=== PATIENT | female | born 1970 | race Caucasian/White ===

== ENCOUNTER → 2020-07-11 15:31 | Outpatient (CLI) | payer OTHER, SELFPAY ==
--- NOTE | ~2020-07-11 | MM_ITS ---
EXAMINATION: MM screening bonnie BI w aravind HISTORY: Screening mammogram TECHNIQUE: Craniocaudal and mediolateral oblique 3-D tomosynthesis images were obtained and synthetic 2-D images were generated. CAD analysis was submitted and interpreted. COMPARISON: 11/01/2015 bilateral diagnostic digital mammogram 10/21/2015 bilateral digital screening mammogram BREAST PARENCHYMAL COMPOSITION: There are scattered areas of fibroglandular density. FINDINGS: Stable mild fibroglandular asymmetry. There is no evidence of suspicious mass, calcificatio n, or architectural distortion to suggest malignancy in either breast. There has been no suspicious i nterval change. IMPRESSION: 1. No mammographic evidence of malignancy. 2. Recommend routine screening mammography in one year. BI-RADS Category 2: Benign finding(s). Reviewed, dictated and finalized at location A.
== END ==
PROVIDERS: PCP Family Medicine; Visit Provider Family Medicine
DX: Z12.31 Encounter for screening mammogram for malignant neoplasm of breast (principal)
CPT/HCPCS: 77063; 77067

== ENCOUNTER → 2020-08-01 01:08 | Outpatient (CLI) | payer OTHER, SELFPAY ==
[2020-08-01 18:48] LABS: SARS-CoV-2 RNA PCR Negative
== END ==
PROVIDERS: PCP Family Medicine; Visit Provider Surgery
DX: Z01.812 Encounter for preprocedural laboratory examination (principal); Z20.822 Contact with and (suspected) exposure to COVID-19
CPT/HCPCS: C9803; U0003; U0005

== ENCOUNTER 2020-08-04 01:16 | Day surgery (SDC) | payer OTHER, SELFPAY ==
[2020-07-26 13:08] VITALS: BMI 45.2
[2020-08-04] MEDS: LACTATED RINGERS 1,000 ML 150 ML IV CONT (07:22)
[2020-08-04 07:28] VITALS: BP 144/104; PULSE 109; RESP 18; TEMP 37.2; O2SAT 97; BMI 45.8
--- NOTE | 2020-08-04 08:32 | P.PNAN_ITS ---
Anes - Initial Pre Proc Eval Procedure: Operation Date: 08/04/20 08:30 Proposed Procedures p Screening Colonoscopy - Donovan Ibrahim DO Date/Time: 08/04/20 08:32 Surgeon: Donovan Ibrahim DO Pre Op Diagnosis: neoplasm screening Patient Data Age: 50 Gender: F Height: 5 ft 6 in Weight: 128.8 kg Last Vital Signs Temp 98.9 F 08/04/20 07:28 Pulse 109 H 08/04/20 07:28 Resp 18 08/04/20 07:28 BP 144/104 H 08/04/20 07:28 Pulse Ox 97 08/04/20 07:28 Allergies Allergy/AdvReac Type Severity Reaction Status Date / Time No Known Allergies Allergy Verified 08/04/20 07:27 Home Medications Medication Instructions Recorded Confirmed Type chlorthalidone 25 mg PO DAILY 07/26/20 08/04/20 History ergocalciferol (vitamin D2) 50,000 unit PO USEASDIRECTD 07/26/20 08/04/20 History Patient hx anesthesia problems: none Family hx anesthesia problems: none COUNT INCLUDES THE [facility] Past Medical History Medical History (Updated 08/04/20 @ 08:22 by Raza Howard MD) Arthritis Hypertension Morbid obesity Social History Social History Smoking status: Never smoker Alcohol intake: current Drinks per week: 2 Substance use: never Substance use type: does not use Living arrangements: with family Spiritual care concerns: No Anes - Eval Final PreProcedure Day of Procedure 08/04/20 08:32 Patient weight: morbidly obese Heart: regular rate and rhythm Lungs: clear to auscultation Airway: Mallampati scale class III Neurological: alert and oriented Last oral intake: >/= 8 hours ASA classification: III Emergent: no Anesthetic plan: proceed Anesthesia type and monitoring: general GIVS and standard monitoring Informed Consent: The patient's anesthetic plan and its attendant risks and benefits were discussed with the patient/family/POA. Questions were solicited and answers provided to the satisfaction of the patient/family/POA.
--- NOTE | 2020-08-04 08:43 | PM.IMHP ---
H&P: HPI History of Present Illness Date/Time: 08/04/20 08:43 Chief Complaint: screening for colorectal cancer Narrative: this is a 50-year-old woman who presents for her 1st colonoscopy. She denies any family history of colon cancer, but her mom has had polyps removed in the past. She denies any hematochezia or melena. Review of Systems Review of Systems: All systems reviewed & are unremarkable except as noted in HPI and below Constitutional: Constitutional: Denies chills, Denies fever(s), Denies headache(s) and Denies weight loss Eyes: Eyes: Denies change in vision ENT: Denies dizziness, Denies headache(s), Denies neck mass and Denies throat swelling Cardiovascular: Cardiovascular: Denies chest pain, Denies lightheadedness and Denies dyspnea Respiratory: Respiratory: Denies cough, Denies dyspnea and Denies wheezing Gastrointestinal: Gastrointestinal: Denies abdominal pain, Denies change in bowel habits, Denies nausea and Denies vomiting Genitourinary: Genitourinary: Denies hematuria and Denies dysuria Musculoskeletal: Musculoskeletal: Reports as per HPI Integumentary/Breasts: Skin/Breast: Reports as per HPI Neurologic: Denies dizziness and Denies headache(s) Allergic/Immunologic: Allergic/Immunologic: Denies throat swelling and Denies wheezing PMFSH Past Medical History Medical History (Updated 08/04/20 @ 08:44 by Donovan Ibrahim DO) Arthritis Hypertension Morbid obesity Social History Social History Smoking status: Never smoker Alcohol intake: current Drinks per week: 2 Substance use: never Substance use type: does not use Living arrangements: with family Spiritual care concerns: No Meds Home Medications and Allergies Home Medications Medication Instructions Recorded Confirmed Type chlorthalidone 25 mg PO DAILY 07/26/20 08/04/20 History ergocalciferol (vitamin D2) 50,000 unit PO USEASDIRECTD 07/26/20 08/04/20 History Allergies Allergy/AdvReac Type Severity Reaction Status Date / Time No Known Allergies Allergy Verified 08/04/20 07:27 Vital Signs Vital Signs - 24 hr 08/04/20 07:28 Temperature 37.2 C Pulse Rate 109 H Respiratory Rate 18 Blood Pressure 144/104 H Pulse Oximetry 97 Exam Const: General: no acute distress and alert Orientation/consciousness: patient oriented x3 HENMT: Head: normocephalic and atraumatic Ears: hearing grossly normal bilaterally General nose exam: Normal nares present Mouth: Yes Normal oral and palatal mucosa present Eyes: Periorbital: periorbital findings normal Sclera: sclerae normal EOM: EOMs intact bilaterally Neck: Neck: normal visual inspection, no lymphadenopathy and trachea midline Chest: Chest palpation & inspection: normal inspection of the chest Resp: Effort & Inspection: normal respiratory effort Auscultation: clear to auscultation bilaterally Cardio: Jugular venous distension: no JVD Rate: regular rate Rhythm: regular rhythm Heart sounds: S1 normal heart sound present and S2 normal heart sound present Peripheral pulses: Peripheral pulses 2+ throughout GI: Inspection: normal to inspection GI Palp: Yes Soft to palpation, No Tenderness to palpation present (GI), No Guarding due to palpation present (GI) and No Rebound tenderness present Percussion: Yes normal to percussion Auscultation: normal bowel sounds : General: Yes no CVA tenderness Back/Spine/Pelvis: Back: no CVA tenderness Neuro: General: patient oriented x3, no focal motor deficits and CN's II-XI intact bilaterally Cognition (Neuro): normal cognition Speech: normal speech Motor exam (neuro): 5/5 motor strength present throughout Extrem: General: capillary refill normal and no clubbing, cyanosis or edema Assessment and Plan Assessment and plan (1) Screening for colorectal cancer: Code(s): Z12.11 - Encounter for screening for malignant neoplasm of colon; Z12.12 - Encounter for screening for malignant neoplasm of rectum
[2020-08-04 09:10] VITALS: BP 132/77; PULSE 78; RESP 20; O2SAT 99
[2020-08-04 09:20] VITALS: BP 142/93; PULSE 80; RESP 18; O2SAT 98
[2020-08-04 09:30] VITALS: BP 154/93; PULSE 74; RESP 20; O2SAT 99
== END 2020-08-04 09:41 | disposition home or self-care (01) ==
PROVIDERS: PCP Family Medicine; Referring Provider Family Medicine; Visit Provider Surgery
PROC: 0DJD8ZZ Inspection of Lower Intestinal Tract, Via Natural or Artificial Opening Endoscopic (ICD-10-PCS; CPT 45378; principal; 2020-08-04 08:30)
DX: Z12.11 Encounter for screening for malignant neoplasm of colon (principal); K57.30 Diverticulosis of large intestine without perforation or abscess without bleeding; K64.8 Other hemorrhoids; I10 Essential (primary) hypertension; E66.01 Morbid (severe) obesity due to excess calories; Z68.42 Body mass index [BMI] 45.0-49.9, adult; Z83.71 Family history of colonic polyps
CPT/HCPCS: 45378; C9803; J2704; J7120; U0003; U0005

== ENCOUNTER 2022-10-18 13:19 | Outpatient (CLI) | payer OTHER, SELFPAY ==
--- NOTE | 2022-10-18 | ECHO_ITS ---
Patient Info Name: Luna Nunez Age: 52 years : 1970 Gender: Female Ht: 66 in Wt: 240 lbs BSA: 2.30 m2 HR: 75 bpm BP: 120 / 83 mmHg Heart Rhythm: Sinus Rhythm Technical Quality: Good Exam Date: 10/18/2022 2:00 PM Exam Location: [facility] Card Pulmonary Patient Status: Outpatient Admit Date: 10/18/2022 Staff Ordering Physician: Sofy Pisano Taper/Finisher: Holger Norwood RDCS Attending Provider: Sfoy Pisano Referring Physician: Aliya GRIFFITH; Exam Type: CA echo doppler color flow Study Info Indications - murmur Complete two-dimensional, color flow and Doppler transthoracic echocardiogram is performed. Summary 1. Complete two-dimensional, color flow and Doppler transthoracic echocardiogram is performed. 2. Normal left ventricular size and thickness with good contractility of all segments. Ejection fraction is 65-70%. Normal diastolic function. 3. Trivial mitral and tricuspid regurgitation. 4. No evidence of pulmonary hypertension. 5. Normal sinus rhythm. Left Ventricle Left ventricular chamber dimension is normal. Left ventricular systolic function is normal, estimated at 65-70%. There is no increased left ventricular wall thickness. Left ventricular septal wall motion is normal. The left ventricular diastolic function is normal. Right Ventricle Right ventricular chamber dimension is normal. Right ventricular systolic function is normal. Left Atria Left atrial chamber dimension is normal. Right Atria Right atrial chamber dimension is normal. Aortic Valve The aortic valve is trileaflet. There is no aortic valve sclerosis. There is no aortic valve stenosis. There is no aortic valve regurgitation. Pulmonic Valve The pulmonic valve is normal. There is no pulmonic valve stenosis. There is trace pulmonic regurgitation. Mitral Valve The mitral valve has normal leaflets. There is no mitral valve stenosis. There is trace mitral valve regurgitation. Tricuspid Valve The tricuspid valve leaflets are normal. There is no significant tricuspid valve stenosis. There is no tricuspid valve regurgitation. No pulmonary hypertension, estimated pulmonary arterial systolic pressure is 29 mmHg. Pericardium/Pleural The pericardium appears normal. There is no pericardial effusion. Inferior Vena Cava Normal inferior vena cava with >50% collapse upon inspiration consistent with Empty right atrial pressure, 10 mmHg. Aorta The aortic root size at the sinus of Valsalva is normal. The prox ascending aorta size is normal. Left Ventricular Outflow Tract Name Value Normal LVOT 2D LVOT Diameter 2.0 cm LVOT Doppler LVOT Peak Gradient 4 mmHg LVOT Mean Gradient 2 mmHg LVOT VTI 30 cm LVOT VTI/AV VTI Ratio 0.8 LVOT Stroke Volume 90 ml LVOT CO 4.2 l/min LVOT CI 1.8 l/min/m2 Pulmonic Valve Name Value Normal
== END 2022-10-18 13:20 | disposition home or self-care (01) ==
DX: R01.1 Cardiac murmur, unspecified (principal)
CPT/HCPCS: 93306

== ENCOUNTER → 2022-12-08 08:44 | Outpatient (CLI) | payer OTHER, SELFPAY ==
--- NOTE | ~2022-12-08 | MM_ITS ---
EXAMINATION: MM screening bonnie BI w aravind HISTORY: Screening mammogram TECHNIQUE: Craniocaudal and mediolateral oblique 3-D tomosynthesis images were obtained and synthetic 2-D images were generated. CAD analysis was submitted and interpreted. COMPARISON: July 11, 2020, October 31, 2015 bilateral mammogram examinations BREAST PARENCHYMAL COMPOSITION: There are scattered areas of fibroglandular density. FINDINGS: There are scattered benign calcifications. There is no evidence of suspicious mass, calcifi cation, or architectural distortion to suggest malignancy in either breast. There has been no suspici ous interval change. IMPRESSION: 1. No mammographic evidence of malignancy. 2. Recommend routine screening mammography in one year. BI-RADS Category 2: Benign finding(s). Reviewed, dictated and finalized at location A.
== END ==
DX: Z12.31 Encounter for screening mammogram for malignant neoplasm of breast (principal)
CPT/HCPCS: 77063; 77067

== ENCOUNTER → 2023-01-17 15:19 | Outpatient (CLI) | payer OTHER, SELFPAY ==
--- NOTE | ~2023-01-17 | MR_ITS ---
EXAMINATION: MR femur RT wo con DATE: 01/17/2023 16:34 INDICATION: Right hamstring tendon rupture TECHNIQUE: Magnetic resonance imaging (MRI) of the right thigh was performed without intravenous cont rast. Sequences included axial T1-weighted FSE and fluid sensitive FSE STIR. The contralateral left thigh is included on the coronal images. COMPARISON: None. FINDINGS: There is a complete avulsion of the right ischial tuberosity origin of the semimembranosus, semitendi nosus and biceps femoris tendons. There is approximately 1 cm distal retraction. There is feathery mu scular edema extending along the associated muscle bellies with small epimysial hematoma along the po sterior margin of the proximal muscle belly. Normal bone marrow signal throughout. No fracture or dominic pected avascular necrosis. Bilateral hip joint spaces appear normal with no joint effusions. No patho logically enlarged inguinal lymphadenopathy. IMPRESSION: 1. Complete avulsion and 1 cm distal retraction of the proximal right hamstring tendon origins from t he right ischial tuberosity. Reviewed, dictated and finalized at location A. IMPRESSION: 1. Complete avulsion and 1 cm distal retraction of the proximal right hamstring tendon origins from the right ischial tuberosity.
== END ==
DX: S76.311A Strain of muscle, fascia and tendon of the posterior muscle group at thigh level, right thigh, initial encounter (principal); X58.XXXA Exposure to other specified factors, initial encounter
CPT/HCPCS: 73718

== ENCOUNTER 2023-11-04 19:30 | Emergency (ER) | payer OTHER, SELFPAY ==
[2023-11-04 19:53] VITALS: BP 146/70; PULSE 73; RESP 20; TEMP 36.2; O2SAT 99
--- NOTE | 2023-11-04 19:54 | ED.SKABFB ---
HPI - Skin/Abscess/Foreign Bdy General Chief complaint: Skin/Abscess/Foreign Body Stated complaint: Left foot bite Time Seen by Provider: 11/04/23 20:04 Source: patient, RN notes reviewed and old records reviewed Mode of arrival: ambulatory Limitations: no limitations History of Present Illness HPI narrative: 53-year-old female presents to the [facility] with concerns of a bug bite to the left anterior ankle that she noticed on Saturday, 2 days ago. Has had increased redness, swelling, drainage from the area. No increased warmth. No increased pain No treatment prior Related Data Allergies Allergy/AdvReac Type Severity Reaction Status Date / Time No Known Allergies Allergy Verified 11/04/23 19:33 Review of Systems Review of Systems: All systems reviewed & are unremarkable except as noted in HPI and below Constitutional: Constitutional: Reports no additional constitutional complaints Eyes: Eyes: Reports no additional eye complaints ENT: Reports system reviewed and no additional complaints, except as documented Cardiovascular: Cardiovascular: Reports no additional cardiovascular complaints, Denies chest pain and Denies dyspnea Respiratory: Respiratory: Reports no additional respiratory complaints, Denies chest congestion, Denies cough and Denies dyspnea Gastrointestinal: Gastrointestinal: Reports no additional gastrointestinal complaints, Denies abdominal pain, Denies nausea and Denies vomiting Musculoskeletal: Musculoskeletal: Reports no additional musculoskeletal complaints Integumentary/Breasts: Skin/Breast: Reports as per HPI Neurologic: Reports system reviewed and no additional complaints, except as documented Psychiatric: Psychiatric: Reports no additional psychiatric complaints Allergic/Immunologic: Allergic/Immunologic: Reports no additional allergic/immunologic complaints PMFSH Past Medical History Medical History Arthritis Hypertension Morbid obesity Social History Social History Smoking status: Never smoker Alcohol intake: current Drinks per week: 2 Substance use: never Substance use type: does not use Living arrangements: with family Spiritual care concerns: No Comments At the time of my signature, I reviewed and agree with the nursing past medical, surgical, social, and family history. There is no relevant family history pertinent to the patient complaint. Exam Const: General: cooperative, healthy appearing, comfortable, no acute distress, well developed, alert and well nourished Nutritional Appearance: well nourished and obese Orientation/consciousness: patient oriented x3 Limitations: no limitations HENMT: Head: normal to inspection Ears: hearing grossly normal bilaterally and external ears normal Face/Nose/Sinus: Normal external nose present, Normal nares present, Normal nasal mucous membranes and turbinates present, normal facial exam and face symmetric Face and sinus: normal facial exam and face symmetric Eyes: General: appearance normal, both eyes and all related structures Alignment and Position: alignment normal Periorbital: periorbital findings normal Neck: Neck: normal visual inspection, full ROM, no lymphadenopathy and no meningeal signs Chest: Chest palpation & inspection: normal inspection of the chest Resp: Effort & Inspection: normal respiratory effort and able to speak in complete sentences Cardio: Rate: regular rate Skin: General skin exam: normal color and no rashes or lesions noted Lesions: no lesions Rashes: no rashes Trauma: no lacerations or abrasions Wounds: no wounds Full body images: 1. 2x1 cm pink, res, not warm to touch. Serous drainage noted Neuro: General: patient oriented x3, gait normal, tone normal, moves all extremities and no meningeal signs Cranial nerves: Yes Equal, round and reactive pupils present Cognition (Yolanda
== END 2023-11-04 20:16 | disposition home or self-care (01) ==
PROVIDERS: Emergency Provider Nurse Practitioner; PCP Physician Assistant
DX: S90.562A Insect bite (nonvenomous), left ankle, initial encounter (principal); W57.XXXA Bitten or stung by nonvenomous insect and other nonvenomous arthropods, initial encounter; M19.90 Unspecified osteoarthritis, unspecified site; I10 Essential (primary) hypertension; E66.01 Morbid (severe) obesity due to excess calories; Z68.41 Body mass index [BMI] 40.0-44.9, adult
CPT/HCPCS: 99213; G0463

== ENCOUNTER 2024-02-17 15:13 | Outpatient (CLI) | payer OTHER, SELFPAY ==
--- NOTE | ~2024-02-17 | MM_ITS ---
EXAMINATION: MM screening bonnie BI w aravind HISTORY: Screening TECHNIQUE: Craniocaudal and mediolateral oblique 3-D tomosynthesis images were obtained and synthetic 2-D images were generated. CAD analysis was submitted and interpreted. COMPARISON: Comparison to multiple prior studies sequentially, with oldest reviewed study dated 11/2015. BREAST PARENCHYMAL COMPOSITION: Not dense: There are scattered areas of fibroglandular density. FINDINGS: There are developing nodular asymmetries in both breasts obscured by fibroglandular tissue. There are no suspicious cluster of microcalcifications. No skin thickening. IMPRESSION: 1. Developing bilateral nodular asymmetries. 2. Additional mammographic views and possible breast ultrasound are recommended. BI-RADS Category 0: Incomplete: Needs additional imaging evaluation. Reviewed, dictated and finalized at location B. PAPER DELIVERER IMPRESSION: 1. Developing bilateral nodular asymmetries. 2. Additional mammographic views and possible breast ultrasound are recommended . BI-RADS Category 0: Incomplete: Needs additional imaging evaluation.
== END 2024-02-17 15:14 | disposition home or self-care (01) ==
PROVIDERS: PCP Physician Assistant; Visit Provider Physician Assistant
DX: Z12.31 Encounter for screening mammogram for malignant neoplasm of breast (principal); R92.8 Other abnormal and inconclusive findings on diagnostic imaging of breast
CPT/HCPCS: 77063; 77067

== ENCOUNTER 2024-03-13 08:11 | Outpatient (CLI) | payer OTHER, SELFPAY ==
--- NOTE | ~2024-03-13 | MM_ITS ---
EXAMINATION: MM diagnostic bonnie BI w aravind HISTORY: Developing bilateral nodular asymmetries described on screening mammography dated 02/17/2024 TECHNIQUE: Additional 3-D tomosynthesis images of the bilateral breast were performed and synthetic 2 -D images were generated. CAD analysis was submitted and interpreted. COMPARISON: 02/17/2024 and dating back to 10/31/2015 BREAST PARENCHYMAL COMPOSITION:Not Dense. There are scattered areas of fibroglandular density. FINDINGS: MAMMOGRAPHIC FINDINGS: The bilateral nodular asymmetries described on previous mammography are not as prominent on today's e xamination and completely efface with spot compression (likely representing a summation artifact) for which no further follow-up is needed. No ultrasound was performed. IMPRESSION: No mammographic or sonographic evidence of malignancy. Resumption of yearly mammography is recommended BI-RADS Category 2: Benign finding(s). Reviewed, dictated and finalized at location A. GROUND CHECK COORDINATOR
== END 2024-03-13 08:12 | disposition home or self-care (01) ==
LOC: MICIMG 08:11
PROVIDERS: PCP Physician Assistant; Visit Provider Family Medicine
DX: R92.8 Other abnormal and inconclusive findings on diagnostic imaging of breast (principal)
CPT/HCPCS: 77062; 77066; G0279

== ENCOUNTER 2025-02-18 15:31 | Outpatient (CLI) | payer OTHER, SELFPAY ==
--- NOTE | ~2025-02-18 | MM_ITS ---
EXAMINATION: MM screening bonnie BI w aravind HISTORY: Screening. TECHNIQUE: Craniocaudal and mediolateral oblique 3-D tomosynthesis images were obtained and synthetic 2-D images were generated. CAD analysis was submitted and interpreted. COMPARISON: 2023, 2022, and 2020 BREAST PARENCHYMAL COMPOSITION: Not Dense: There are scattered areas of fibroglandular FINDINGS: No suspicious masses are seen. There are no suspicious calcifications. No unexplained architectural distortion is seen. There are no skin or nipple abnormalities identified. There is no adenopathy seen on the images submitted. IMPRESSION: No mammographic evidence to suggest malignancy is seen. The patient may return to screening mammography as per ACR guidelines. BI-RADS 1 - Negative. Reviewed, dictated and finalized at location C. HT MANAGER
== END 2025-02-18 15:32 | disposition home or self-care (01) ==
LOC: MICIMG 15:31
PROVIDERS: PCP Physician Assistant; Visit Provider Physician Assistant
DX: Z12.31 Encounter for screening mammogram for malignant neoplasm of breast (principal)
CPT/HCPCS: 77063; 77067